=== PATIENT | female | born 1985 | race Caucasian/White ===

== ENCOUNTER 2022-10-25 04:46 | Emergency (ER) | payer OTHER ==
[2022-10-25] MEDS ORDERED: Ondansetron 4 MG/2 ML SDV IVPUSH ONE (05:16)
[2022-10-25] MEDS ORDERED: Sodium Chloride 0.9% 1,000 ML IV SCH (05:30)
[2022-10-25 05:53] LABS: ESTIMATED GFR 97 mL/min (>60)
== END 2022-10-25 06:37 | disposition home or self-care (01) ==
LOC: JP.ED 04:46
DX: K52.9 Noninfective gastroenteritis and colitis, unspecified (principal); Z72.0 Tobacco use; Z88.0 Allergy status to penicillin; Z88.5 Allergy status to narcotic agent
CPT/HCPCS: 36415; 80053; 83690; 85025; 96361; 96374; 96375; 99284; J1790; J2405; J7030